=== PATIENT | female | born 1995 | race Caucasian/White ===

== ENCOUNTER 2016-08-07 10:28 | Day surgery (SDC) | payer MEDICAID, OTHER ==
[2016-08-02 10:49] VITALS: BMI 48.6
[~2016-08-07 10:28] MED LIST: DEXAMETHASONE SOD PHOSPHATE 4 MG/ML 1 ML VIAL IV ONE; FAMOTIDINE 20 MG/2 ML VIAL IV ONE; HYDROmorphone 1 MG/ML 1 ML SYRINGE IVP PRN; LACTATED RINGERS 1,000 ML IV SCH; LIDOCAINE 1% 20 ML VIAL (10MG/ML) FOR IV START INTRADERMA PRN; ONDANSETRON 4 MG/2 ML VIAL IVP ONE; Pre Op ABX Message 1 EACH MISC MISCELLANE ONE
[2016-08-07 11:21] VITALS: RESP 16
[2016-08-07] MEDS ORDERED: fentaNYL (PF) 50 MCG/ML 2 ML AMP ONE (11:52)
[2016-08-07] MEDS ORDERED: DEXAMETHASONE SOD PHOS (MDV) 100 MG/10 ML VIAL ONE (11:52)
[2016-08-07] MEDS ORDERED: HYDROmorphone (PF) 1 MG/ML ONE (11:52)
[2016-08-07] MEDS ORDERED: PROPOFOL 10 MG/ML 20 ML VIAL IV ONE (11:52)
[2016-08-07] MEDS ORDERED: MIDAZOLAM 2 MG/2 ML VIAL ONE (11:52)
[2016-08-07] MEDS ORDERED: LIDOCAINE 1% INJ 10MG/ML (20 ML MDV) ONE (11:52)
[2016-08-07] MEDS ORDERED: SUCCINYLCHOLINE CHLORIDE 100 MG/5 ML SYR IV ONE (11:52)
--- NOTE | 2016-08-07 12:51 | P.OP ---
Date of Procedure: 08/07/16 Preoperative Diagnosis: Chronic tonsillitis Tonsillar hypertrophy Postoperative Diagnosis: Same Procedure(s) Performed: Tonsillectomy Anesthesia: MARNI Surgeon: Rubin White Estimated Blood Loss (ml): 5 Pathology: other (Bilateral tonsils) Condition: stable Disposition: PACU Indications for Procedure: Is a 21-year-old white female who has difficulties with chronically enlarged tonsils with obstructive symptoms including dysphagia and foreign body sensation as well as recurrent tonsillitis. Operative Findings: Tonsils +3.5 bilateral Description of Procedure: The patient was brought in the operative suite and placed in a supine position. The patient underwent induction of general anesthesia with oral endotracheal intubation without difficulty. The patient was prepped and draped in usual aseptic fashion. The McIvor mouth gag was placed. The soft palate was palpated and no submucous cleft was noted. The left tonsil was grasped with a curved Allis clamp and dissected from the tonsillar fossa in a superior to inferior direction with both blunt and electrocautery dissection until the tonsil was removed. Once the left tonsil was removed hemostasis gained with suction cautery. Once hemostasis was obtained attention was turned to the right where the right tonsil was removed exactly as the left had been. Hemostasis was gained with suction cautery. Once hemostasis was obtained and remained good in both tonsillar fossa the patient was suctioned in oral gastric fashion and the McIvor mouth gag was removed. The patient was allowed to emerge from general anesthesia and was extubated in the operating suite and transferred to the postop recovery area in satisfactory condition.
[2016-08-07 13:18] VITALS: TEMP 97.6
[2016-08-07] MEDS ORDERED: IBUPROFEN 200 MG TAB PO ONE (14:33)
[2016-08-07 15:03] VITALS: BP 117/64; PULSE 84
== END 2016-08-07 15:21 | disposition home or self-care (01) ==
LOC: OR 10:28
PROVIDERS: ATTEND Otolaryngology
DX: J35.01 Chronic tonsillitis (principal); Z87.891 Personal history of nicotine dependence; F41.0 Panic disorder [episodic paroxysmal anxiety]; F32.9 Major depressive disorder, single episode, unspecified; Z79.3 Long term (current) use of hormonal contraceptives; Z79.899 Other long term (current) drug therapy; Z88.5 Allergy status to narcotic agent; Z88.2 Allergy status to sulfonamides
CPT/HCPCS: 42826; 81025; 88304; J2250; J2405; J2001; J3010; J1170; J1100; J0330; J2704